=== PATIENT | female | born 1985 | race African-American/Black ===

== ENCOUNTER 2017-12-05 00:26 | Inpatient (IN) | payer OTHER ==
[~2017-12-05] VITALS: Ht 149.9 cm; Wt 70.4 kg
[2017-12-05 00:31] VITALS: Ht 149.9 cm; Wt 70.4 kg
[2017-12-05 02:19] LABS: BASOPHIL % 0.8 % (0-2); PLATELET COUNT 375 x10^3mcL (130-400)
[2017-12-05 02:24] LABS: CALCIUM 8.5 mg/dL (8.5-10.1); CARBON DIOXIDE 25.4 mmol/L (21-32); CHLORIDE SERUM 104 mmol/L (98-107); CREATININE SERUM 0.6 mg/dL (0.6-1.0); GFR1 > 60 mL/min; GLUCOSE SERUM 91 mg/dL (74-106); POTASSIUM SERUM 3.4 mmol/L (3.5-5.1); SODIUM SERUM 139 mmol/L (136-145)
[2017-12-05 02:29] LABS: ALKALINE PHOSPHATASE 122 U/L (46-116); ALT/SGPT 37 U/L (14-59); AST/SGOT 31 U/L (15-37); BILIRUBIN TOTAL 0.28 mg/dL (0.20-1.00); TOTAL PROTEIN, SERUM 7.3 g/dL (6.4-8.2)
[2017-12-05 02:32] LABS: ALBUMIN 2.8 g/dL (3.4-5.0)
[2017-12-05 02:39] LABS: AMPHETAMINE QUAL UR NONE DETECTED (NEG <=1000)
[2017-12-05] MEDS ORDERED: IBUPROFEN600 MG PO (03:35)
[2017-12-05 06:24] VITALS: BP 116/73
[2017-12-05 10:16] VITALS: BP 110/68
[2017-12-05 12:49] VITALS: BP 121/93
[2017-12-05 17:44] VITALS: BP 121/93
[2017-12-05 17:50] VITALS: BP 113/72
== END 2017-12-05 19:13 | disposition home or self-care (01) | DRG 383 ==
LOC: ED 00:26 → MU 03:46
PROVIDERS: Emergency Medicine
DX: L08.89 Other specified local infections of the skin and subcutaneous tissue (principal); E66.9 Obesity, unspecified; J45.909 Unspecified asthma, uncomplicated; Z91.013 Allergy to seafood
CPT/HCPCS: J0295; J1650; J1885; J3490; Q0092; Q9967

== ENCOUNTER 2018-05-15 20:13 | Emergency (ER) | payer OTHER ==
[~2018-05-15] VITALS: Ht 149.9 cm; Wt 65.8 kg
[~2018-05-15 20:13] MED LIST: IBUPROFEN600 MG PO
[2018-05-15 20:24] VITALS: Ht 149.9 cm; Wt 65.8 kg
[2018-05-15 21:45] VITALS: BP 128/86
== END 2018-05-15 21:45 | disposition home or self-care (01) ==
LOC: ED 20:13
DX: S86.911A Strain of unspecified muscle(s) and tendon(s) at lower leg level, right leg, initial encounter (principal); J45.909 Unspecified asthma, uncomplicated; Z91.013 Allergy to seafood; X50.1XXA Overexertion from prolonged static or awkward postures, initial encounter; Y93.89 Activity, other specified; Y92.89 Other specified places as the place of occurrence of the external cause; Y99.8 Other external cause status